=== PATIENT | female | born 1960 | race Caucasian/White ===

== ENCOUNTER 2020-06-11 12:04 | Outpatient (CLI) | payer OTHER ==
[~2020-06-11 12:04] MED LIST: Magnevist 469MG/ML 20 ML VIAL ONE
--- NOTE | 2020-06-11 14:50 | MRI ---
MRI of thelumbar spine with and without contrast: 06/11/2020 COMPARISON:None available HISTORY:Back pain, lumbar radiculopathy, prior surgery TECHNIQUE: Multiplanar multisequence MR imaging of thelumbar spine with and without contrast Findings:The sagittal STIR imaging demonstrates no focal area of osseous marrow edema. There is mild T2 hyperintensity posterior to the thecal sac on the left at the L5-S1 level consistent with prior left-sided hemilaminectomy. On the basis of 5 lumbar type vertebral bodies the conus medullaris terminates at T12-L1. T12-L1: Disc space narrowing and bilateral facet hypertrophy with no significant central canal or milagros ral foraminal stenosis. L1-2: Bilateral facet hypertrophy noted. No central canal or neural foraminal stenosis. L2-3: Disc space narrowing with disc desiccation, anterior degenerative endplate change, and anterior osteophyte formation. Mild disc bulge. Mild bilateral facet hypertrophy. No significant central canal or neural foraminal stenosis. L3-4: There is bilateral facet hypertrophy and hypertrophy of ligamentum flavum. There is disc desicc ation and minimal disc bulge with no significant central canal or neural foraminal stenosis. L4-5: Bilateral facet hypertrophy and hypertrophy of ligament and flavum, right greater than left. Th ere is disc space narrowing with disc desiccation. Mild disc bulge. Small central disc protrusion and central annular tear. No neural foraminal stenosis. Mild central canal stenosis. L5-S1: There is disc space narrowing and disc desiccation with degenerative endplate change and anter ior osteophyte formation. There is a central disc osteophyte complex without central canal stenosis. There is mild bilateral facet hypertrophy with no significant neural foraminal stenosis. The postcontrast imaging demonstrates no abnormal enhancement involving the contents of the thecal sa c, the imaged osseous structures, or the intervertebral discs. The imaged retroperitoneal structures are grossly unremarkable. IMPRESSION: Lower lumbar spine postoperative and degenerative change as detailed above.
--- NOTE | 2020-06-11 14:57 | MRI ---
MRI of thecervical spine with and without contrast: 06/11/2020 COMPARISON:12/09/2019 HISTORY:Neck pain, bilateral arm numbness and tingling, prior cervical spine surgery TECHNIQUE: Multiplanar multisequence MR imaging of thecervical spine with and without contrast Findings:The sagittal STIR imaging demonstrates no focal area of osseous marrow edema. Anterior discectomy and fusion hardware noted at the C5-6/C6-7 level with an apparent fibular graft, not optimally assessed on this examination. C2-3: Mild bilateral facet hypertrophy with no significant central canal or neural foraminal stenosis . C3-4: There is disc space narrowing with disc desiccation and a small central disc protrusion. Partia l effacement of the ventral thecal sac noted with no significant central canal stenosis. Bilateral facet and uncovertebral osteophyte formation, right greater than left. No significant neural foramina l stenosis. C4-5: There is disc space narrowing, disc desiccation, and disc bulge present with effacement of the ventral thecal sac centrally and to the left of midline. Superimposed central/left paracentral disc protrusion abuts the ventral aspect of the cervical cord with a moderate degree of central canal sten osis. The central canal stenosis has worsened since the prior examination. Bilateral facet and uncovertebral osteophyte formation noted, left greater than right. Mild right and moderate left neura l foraminal stenosis. C5-C6: Postoperative changes limits detailed assessment. No significant central canal or neural khadra inal stenosis. C6-7. Postoperative changes limits detailed assessment. Mild bilateral facet hypertrophy with no sign ificant central canal or neural foraminal stenosis. C7-T1: Mild bilateral facet hypertrophy. Minimal disc bulge. No significant central canal or neural f oraminal stenosis. The postoperative hardware limits detailed assessment of the postcontrast imaging at the C5-C7 levels . No abnormal enhancement is seen involving the imaged osseous structures, the intervertebral discs, or the contents of the thecal sac. No abnormal signal intensity is seen within the cervical co rd on the T2-weighted imaging. IMPRESSION:Postoperative and degenerative changes of the cervical spine, most prominent at the C4-5 l evel.
--- NOTE | 2020-06-11 15:39 | RAD ---
Cervical spine 5 views: 06/11/2020 COMPARISON: None HISTORY: Headaches with neck stiffness and pain radiating down both arms for one year, cervical radic ulopathy FINDINGS: There is disc space narrowing and anterior osteophyte formation at C4-5. Anterior discectom y and fusion hardware is present at the C5-6/C6-7 levels. No significant anterolisthesis or retrolisthesis seen on the lateral neutral, flexion, or extension views. The cervicothoracic junction appears intact on the swimmer's lateral view. There is atherosclerotic calcification overlying the neck on the left. Frontal imaging demonstrates l ower lumbar spine facet and uncovertebral osteophyte formation, left greater than right, primarily at the C5-6 and C6-7 levels. No evidence for hardware failure. IMPRESSION: Postoperative and degenerative changes of the cervical spine as detailed above.
== END 2020-06-11 12:05 | disposition home or self-care (01) ==
LOC: BICMRI 12:04
PROVIDERS: ATTEND Neurological Surgery
DX: M47.26 Other spondylosis with radiculopathy, lumbar region (principal); M47.22 Other spondylosis with radiculopathy, cervical region; Z98.1 Arthrodesis status; Z98.890 Other specified postprocedural states
CPT/HCPCS: 72050; 72156; 72158; 82565; A9579